=== PATIENT | female | born 1935 | race Hispanic/Latino ===

== ENCOUNTER 2017-01-14 09:53 | Emergency (ER) | payer MEDICARE ==
[2017-01-14 10:06] VITALS: BP 156/69; PULSE 106; RESP 18; TEMP 97; O2SAT 96; BMI 20.1
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
== END 2017-01-14 11:24 | disposition home or self-care (01) ==
LOC: ED 09:53
DX: F03.90 Unspecified dementia, unspecified severity, without behavioral disturbance, psychotic disturbance, mood disturbance, and anxiety (principal)